=== PATIENT | female | born 1970 | race Caucasian/White ===

== ENCOUNTER → 2021-10-09 | Outpatient (CLI) | payer OTHER ==
[~2021-10-09] MED LIST: CITALOPRAM HBR40 MG PO; CLARITIN10 M2 PO; FLONASE 0.05% N16 GM; FLONASE SPRAY; GLUCOSAMINE CH1 EAC6 PO; HYDROXYZINE HCL25 MG PO; LINZESS290 MCG PO; LIPITOR10 MG PO; MEGA BIOTIN10000 MCG PO; MELOXICAM15 MG PO; MIDODRINE HCL5 MG PO; MULTI-VITAMIN1 EACH PO; MUPIROCIN22 GM TOP; NEURONTIN 400400 MG PO; NEURONTIN400 MG PO; PROAIR HFA8.5 GM INH; PROBIOTIC GUMMIES PO; SINGULAIR10 MG PO; SYMBICORT 16010.2 GM INH; VENTOLIN HFA 66.7 GM INH; VITAMIN B12 PO; VITAMIN C WIT1000 MG PO; VITAMIN D31000 UNIT PO; VITAMIN D350 MC3 PO; VYVANSE10 MG PO; VYVANSE40 MG PO; XANAX0.5 MG PO
== END ==
LOC: OPSV2 12:30
DX: Z01.810 Encounter for preprocedural cardiovascular examination (principal)
CPT/HCPCS: 93005

== ENCOUNTER → 2021-10-23 | Day surgery (SDC) | payer OTHER ==
[~2021-10-23] VITALS: Ht 165.1 cm; Wt 69.4 kg
== END | disposition home or self-care (01) ==
LOC: OR 07:22
DX: M75.102 Unspecified rotator cuff tear or rupture of left shoulder, not specified as traumatic (principal); S43.432A Superior glenoid labrum lesion of left shoulder, initial encounter; M75.52 Bursitis of left shoulder; M75.42 Impingement syndrome of left shoulder; M65.812 Other synovitis and tenosynovitis, left shoulder; J45.909 Unspecified asthma, uncomplicated; X58.XXXA Exposure to other specified factors, initial encounter
CPT/HCPCS: 84703; C1713; J0171; J0690; J1100; J2001; J2250; J2405; J2795; J3010